=== PATIENT | male | born 1975 | race Caucasian/White ===

== ENCOUNTER 2016-09-28 15:19 | Emergency (ER) | payer OTHER ==
--- NOTE | 2016-09-28 16:25 | ER Document Report ---
ED General - General Stated Complaint: POSSIBLE OVERDOSE Mode of Arrival: Medic Information source: Patient, Emergency Med Personnel, H Records Notes: This is a 41-year-old male who arrives via EMS after an episode of altered mental status. EMS was called for altered mental status and on their arrival the patient was found outside on the ground. EMS reports that his respirations were 0 in his heart rate was 32 and that he was having CPR performed by bystanders. EMS did administer 4 mg of Narcan which resulted in the patient becoming awake and combative. Chart review reveals that he does have a prior history of narcotic abuse. However the patient is denying drug use today. At this time he is confused and does not know what happened today and is only intermittently cooperative with my interview. He does deny fevers chills or recent illness. He also denies chest pain. TRAVEL OUTSIDE OF THE [place] IN LAST 30 DAYS: No - Related Data Allergies/Adverse Reactions: No Known Allergies Allergy (Verified 06/18/16 07:17) Past Medical History - Social History Smoking Status: Unknown if Ever Smoked Family History: Reviewed & Not Pertinent Psychiatric Medical History: Reports: Hx Bipolar Disorder, Other - substance abuse Past Surgical History: Reports: Hx Orthopedic Surgery - Right clubfoot surgery - Immunizations Hx Diphtheria, Pertussis, Tetanus Vaccination: Yes Review of Systems - Review of Systems -: Yes ROS unobtainable due to patient's medical condition Constitutional: denies: Chills, Fever EENT: No symptoms reported Cardiovascular: No symptoms reported. denies: Chest pain, Palpitations Respiratory: No symptoms reported. denies: Cough, Hurts to breathe, Short of breath Gastrointestinal: No symptoms reported. denies: Abdominal pain, Nausea, Vomiting Genitourinary: No symptoms reported Musculoskeletal: No symptoms reported Skin: No symptoms reported Hematologic/Lymphatic: No symptoms reported Neurological/Psychological: See HPI Physical Exam - Vital signs Vitals: Resp Pulse Ox 18 100 09/28/16 15:26 09/28/16 15:26 - Notes Notes: PHYSICAL EXAMINATION: GENERAL: Well-appearing, well-nourished and in no acute distress. Somewhat anxious affect and intermittently cooperative with interview. HEAD: Atraumatic, normocephalic. EYES: Pupils equal round and reactive to light, extraocular movements intact, sclera anicteric, conjunctiva are normal. ENT: nares patent, oropharynx clear without exudates. Moist mucous membranes. NECK: Normal range of motion, supple without lymphadenopathy LUNGS: Breath sounds clear to auscultation bilaterally and equal. No wheezes rales or rhonchi. HEART: Regular rate and rhythm without murmurs ABDOMEN: Soft, nontender, normoactive bowel sounds. No guarding, no rebound. No masses appreciated. EXTREMITIES: Normal range of motion, no pitting or edema. NEUROLOGICAL: Cranial nerves grossly intact. Normal speech. Motor strength +5/ 5 bilateral upper and lower extremities. Sensation intact. No gross focal motor sensory deficits appreciated. PSYCH: Flat affect, tangential speech and occasional bizarre thought process, but adamantly denies SI/HI SKIN: Warm, Dry, normal turgor, no rashes or lesions noted. Course - Re-evaluation Re-evalutation: 09/28/16 18:13 Patient reexamined. His heart rate is 90. He continues to deny SI/HI. He is unable to recall events leading up to episode of unresponsiveness today. He continues to deny substance abuse today. No chest pain. Family is available now (father) who states that he has long history of bipolar and psychiatric problems and that he was recently placed on Depakote. 09/28/16 22:40 Patient has been observed in the ER for several hours. He has remained alert and oriented and hemodynamically stable. He states that he has no complaints at this time. He adamantly denies any thoughts of hurting himself or anyone else. He does have a follow-up mental health appointment next week which he states he is planning to keep. At this time there is no criteria for involuntary commitment. He will be discharged home with his family and will return for any worsening symptoms or concerns. - Vital Signs Vital signs: Temp Pulse Resp BP Pulse Ox 98.1 F 120 H 18 123/90 H 99 09/28/16 23:01 09/28/16 16:00 09/28/16 23:01 09/28/16 23:01 09/28/16 23:01 - Laboratory Result Diagrams: 09/28/16 15:45 09/28/16 15:45 Laboratory results interpreted by me: 09/28/16 09/28/16 15:45 15:50 WBC 11.2 H RDW 14.1 H Absolute Neutrophils 8.4 H Urine Ascorbic Acid 20 H - Diagnostic Test Radiology reviewed: Reports reviewed - Chest x-ray with no acute process - EKG Interpretation by Me Additional EKG results interpreted by me: 09/28/16 18:10 EKG at 1711 demonstration normal sinus rhythm with a rate of 96. There are no ST segment elevations or depressions. QRS and VA and QTC intervals are all within normal limits. Discharge - Discharge Clinical Impression: Substance abuse Bipolar disorder Qualifiers: Active/Remission status: remission status unspecified Qualified Code(s): F31.9 - Bipolar disorder, unspecified Condition: Stable Disposition: HOME, SELF-CARE Additional Instructions: Keep your mental health follow-up appointment as scheduled next week. Take your medications as prescribed. Do not use drugs or any other nonprescribed substances/medications. Return to the emergency department for any chest pain, passing out, fever, or worsening symptoms or concerns.
[2016-09-28 16:31] LABS: ABSOLUTE BASOPHILS # (AUTO) 0.1 10^3/uL (0.0-0.2); ABSOLUTE EOSINOPHILS # (AUTO) 0.1 10^3/uL (0.0-0.6); ABSOLUTE LYMPHOCYTES (AUTO) 1.9 10^3/uL (0.5-4.7); ABSOLUTE MONOCYTES (AUTO) 0.8 10^3/uL (0.1-1.4); ABSOLUTE NEUT (AUTO) 8.4 10^3/uL (1.7-8.2); BASOPHILS % (AUTO) 0.5 % (0-2); EOSINOPHILS % (AUTO) 0.5 % (0-6); HEMATOCRIT 41.8 % (37.9-51.0); HEMOGLOBIN 14.1 g/dL (13.5-17.0); HGB HCT DIFFERENCE 0.5; LYMPHOCYTES % (AUTO) 16.7 % (13-45); MEAN CORPUSCULAR HEMOGLOBIN 30.1 pg (27.0-33.4); MEAN CORPUSCULAR HGB CONC 33.7 g/dL (32.0-36.0); MEAN CORPUSCULAR VOLUME 89 fl (80-97); MONOCYTES % (AUTO) 6.8 % (3-13); RED BLOOD COUNT 4.69 10^6/uL (4.35-5.55); RED CELL DISTRIBUTION WIDTH 14.1 % (11.5-14.0); SEGMENTED NEUTROPHILS % (AUTO) 75.5 % (42-78); WHITE BLOOD COUNT 11.2 10^3/uL (4.0-10.5)
[2016-09-28 16:35] LABS: PROTHROMBIN TIME 12.6 SEC (11.4-15.4)
[2016-09-28 16:36] LABS: ALANINE AMINOTRANSFERASE 43 U/L (21-72); ALBUMIN 4.5 g/dL (3.5-5.0); ALCOHOL 21 mg/dL (NONE DETECTED); ALKALINE PHOSPHATASE 58 U/L (38-126); ANION GAP 16 (5-19); ASPARTATE AMINO TRANSFERASE 39 U/L (17-59); BILIRUBIN,DIRECT 0.3 mg/dL (0.0-0.4); BILIRUBIN,TOTAL 0.5 mg/dL (0.2-1.3); BLOOD UREA NITROGEN 7 mg/dL (7-20); CALCIUM 10.2 mg/dL (8.4-10.2); CARBON DIOXIDE 26 mmol/L (22-30); CHLORIDE 102 mmol/L (98-107); CREATINE KINASE 88 U/L (55-170); CREATININE RESULT 0.75 mg/dL (0.52-1.25); GLUCOSE 88 mg/dL (75-110); PARTIAL THROMBOPLASTIN TIME 29.7 SEC (23.5-35.8); POTASSIUM 3.8 mmol/L (3.6-5.0); SODIUM 144.2 mmol/L (137-145); TOTAL PROTEIN 7.4 g/dL (6.3-8.2)
[2016-09-28 16:47] LABS: CREATINE KINASE MB 1.08 ng/mL (<4.55)
[2016-09-28 16:48] LABS: TROPONIN I < 0.012 ng/mL
[2016-09-28 17:46] LABS: APPEARANCE,URINE CLEAR; BILIRUBIN,URINE NEGATIVE (NEGATIVE); GLUCOSE, URINE NEGATIVE (NEGATIVE); KETONES,URINE NEGATIVE (NEGATIVE); LEUKOCYTE ESTERASE,URINE NEGATIVE (NEGATIVE); NITRITE,URINE NEGATIVE (NEGATIVE); PROTEIN,URINE NEGATIVE (NEGATIVE); URINE SPECIFIC GRAVITY 1.003; UROBILINOGEN,URINE NEGATIVE mg/dL (<2.0)
[2016-09-28 17:59] LABS: URINE BARBITURATES SCREEN NEGATIVE; URINE METHADONE SCREEN NEGATIVE; URINE OPIATES LOW NEGATIVE; URINE PHENCYCLIDINE SCREEN NEGATIVE
[2016-09-28 23:21] VITALS: BP 123/90
--- NOTE | 2016-09-29 00:06 | EKG REPORT ---
SEVERITY:- NORMAL ECG - SINUS RHYTHM : Confirmed by: Tian Allan 29-Sep-2016 00:04:57
== END 2016-09-28 23:25 | disposition home or self-care (01) ==
LOC: ER 15:19
DX: F19.10 Other psychoactive substance abuse, uncomplicated (principal); R41.3 Other amnesia; F31.9 Bipolar disorder, unspecified
CPT/HCPCS: 36415; 71010; 80053; 80164; 80307; 81001; 82550; 82553; 83735; 84484; 85025; 85610; 85730; 93005; 93010; 99285

== ENCOUNTER 2017-02-04 11:04 | Emergency (ER) | payer OTHER ==
[2017-02-04] MEDS ORDERED: NORMAL SALINE 1000 ML 1,000 ML IV ONE (11:26)
[2017-02-04] MEDS ORDERED: MORPHINE SULFATE 10 MG/ML INJ IV ONE ×2 (11:26→12:42)
[2017-02-04] MEDS ORDERED: ONDANSETRON HCL INJ/PF 4 MG/2 ML SDV IV ONE (11:26)
[2017-02-04] MEDS ORDERED: TERBUTALINE SULFATE INJ/PF 1 MG/1 ML SDV SUBCUT ONE (11:27)
--- NOTE | 2017-02-04 11:28 | ER Document Report ---
ED GI/ - General Mode of Arrival: Ambulatory Information source: Patient TRAVEL OUTSIDE OF THE [place] IN LAST 30 DAYS: No - HPI Patient complains to provider of: Other - priapism Associated symptoms: Other - see above - General Chief Complaint: Penile Problem Stated Complaint: PROLONGED ERECTION Time Seen by Provider: 02/04/17 11:14 Notes: Patient is a 41 year old male who presents to the ED with complaints of priapism with onset 0500 this morning. Patient states it woke him up but he was able to go back to sleep for a little while. Patient has had priapism 2x in the past. Patient has a history of bipolar disorder. Patient states he has been off of Trazadone for approximately 4 months ago and states he started a new sleeping medication last . (TEMI BOLES) - Related Data Allergies/Adverse Reactions: No Known Allergies Allergy (Verified 02/04/17 11:09) Past Medical History - General Information source: Patient - Social History Smoking Status: Current Some Day Smoker Chew tobacco use (# tins/day): No Frequency of alcohol use: Occasional Drug Abuse: Marijuana Family History: Reviewed & Not Pertinent Patient has suicidal ideation: No Patient has homicidal ideation: No Renal/ Medical History: Denies: Hx Peritoneal Dialysis Psychiatric Medical History: Reports: Hx Bipolar Disorder Past Surgical History: Reports: Hx Orthopedic Surgery - Right clubfoot surgery - Immunizations Hx Diphtheria, Pertussis, Tetanus Vaccination: Yes Review of Systems - Review of Systems Constitutional: No symptoms reported EENT: No symptoms reported Cardiovascular: No symptoms reported Respiratory: No symptoms reported Gastrointestinal: No symptoms reported Genitourinary: No symptoms reported Male Genitourinary: See HPI, Erectile dysfunction Musculoskeletal: No symptoms reported Skin: No symptoms reported Hematologic/Lymphatic: No symptoms reported Neurological/Psychological: No symptoms reported Physical Exam - General General appearance: Appears well, Alert In distress: None - HEENT Head: Normocephalic, Atraumatic Eyes: Normal Extraocular movements intact: Yes Pupils: PERRL - Respiratory Respiratory status: No respiratory distress Breath sounds: Normal - Cardiovascular Rhythm: Regular Heart sounds: Normal auscultation Murmur: No - Abdominal Inspection: Normal - Genitourinary Inspection: Other - priapism - Back Back: Normal - Extremities General upper extremity: Normal inspection, Normal ROM General lower extremity: Normal inspection, Normal ROM - Neurological Neuro grossly intact: Yes - Psychological Associated symptoms: Normal affect, Other - biplar, hypomanic - Skin Skin Temperature: Warm Skin Moisture: Dry Skin Color: Normal Course - Re-evaluation Re-evalutation: 02/04/17 14:58 PROCEEDURE: The penile shaft was prepped with alcohol wipes Arben-Synephrine in a 1,000 mcg/1 mL sterile water solution was used. 1 mL was injected into both sides of the penile shaft every 5-10 minutes up to a total of 4 injections into each side. Eventually the patient detumesced. This time he is feeling much better and anxious to go home. (JOSE SERRANO) - Vital Signs Vital signs: Temp Pulse Resp BP Pulse Ox 97.9 F 80 28 H 150/91 H 100 02/04/17 11:09 02/04/17 11:09 02/04/17 14:01 02/04/17 14:00 02/04/17 11:09 Discharge - Discharge Clinical Impression: Priapism Condition: Stable Disposition: HOME, SELF-CARE Additional Instructions: Priapism: Priaprism is a uncontrollable painful erection of the penis. Blood is trapped within the veins of the penis, preventing it from deflating. It can occur with blood diseases such as sickle cell disease and leukemia. Sometimes no cause can be found. Permanent problems can develop if priapism is untreated. Priapism can be treated with medication injection, or by withdrawing blood from the penis with a needle. It's important to follow up with the urologist. Call the doctor or return if you develop difficulty urinating, severe pain in the penis or testicles, fever, swelling, or other significant change. Stop taking the new sleeping pill your prescribed. Follow up with a urologist this week for recheck. RETURN TO THE EMERGENCY ROOM IF ANY NEW OR WORSENING SYMPTOMS. Scribe Attestation: 02/04/17 15:00 I personally performed the services described in the documentation, reviewed and edited the documentation which was dictated to the scribe in my presence, and it accurately records my words and actions. (JOSE SERRANO) Scribe Documentation - Scribe Written by Gwen:: gwen Varghese, 02/04/2017, 1128 acting as scribe for :: Nicole
[2017-02-04] MEDS ORDERED: PHENYLEPHRINE HCL INJ/PF 10 MG/1 ML SDV SUBCUT PRN ×2 (11:37→11:50)
[2017-02-04] MEDS ORDERED: PSEUDOEPHEDRINE HCL 30 MG TABLET PO ONE (12:41)
[2017-02-04 15:11] VITALS: BP 144/96
== END 2017-02-04 15:11 | disposition home or self-care (01) ==
LOC: ER 11:04
DX: N48.30 Priapism, unspecified (principal); F17.200 Nicotine dependence, unspecified, uncomplicated
CPT/HCPCS: 96376; 99284; 96372; 96361; 96374; 96375; J2270; J2370; J3105; J2405; J7030

== ENCOUNTER 2017-02-20 06:31 | Emergency (ER) | payer OTHER ==
[2017-02-20] MEDS ORDERED: PHENYLEPHRINE HCL INJ/PF 10 MG/1 ML SDV IM ONE ×2 (07:20→09:15)
[2017-02-20] MEDS ORDERED: OXYCODONE-ACETAMINOPHEN 5-325 MG TABLET PO ONE (07:40)
[2017-02-20] MEDS ORDERED: MORPHINE SULFATE 10 MG/ML INJ IV ONE (08:15)
--- NOTE | 2017-02-20 09:24 | ER Document Report ---
ED GI/ - General Chief Complaint: Penile Pain Stated Complaint: DISCOMFORT IN GROIN AREA Time Seen by Provider: 02/20/17 07:19 Mode of Arrival: Ambulatory Information source: Patient Notes: Pt is a 41 year old male with bipolar disorder who presents to the ER today for priapism since 4am this morning. He has had this multiple times before and it was thought to be from trazodone, but he states he stopped taking that and is taking his olanzepine and benztropine which now he's convinced is causing it. He state he hasn't had sexual intercourse in 15 years. TRAVEL OUTSIDE OF THE [place] IN LAST 30 DAYS: No - Related Data Allergies/Adverse Reactions: No Known Allergies Allergy (Verified 02/20/17 06:49) Past Medical History - General Information source: Patient - Social History Smoking Status: Current Every Day Smoker Chew tobacco use (# tins/day): No Frequency of alcohol use: None Drug Abuse: None Family History: Reviewed & Not Pertinent Patient has suicidal ideation: No Patient has homicidal ideation: No Renal/ Medical History: Denies: Hx Peritoneal Dialysis Psychiatric Medical History: Reports: Hx Bipolar Disorder Past Surgical History: Reports: Hx Orthopedic Surgery - Right clubfoot surgery - Immunizations Hx Diphtheria, Pertussis, Tetanus Vaccination: Yes Review of Systems - Review of Systems Constitutional: No symptoms reported EENT: No symptoms reported Cardiovascular: No symptoms reported Respiratory: No symptoms reported Gastrointestinal: No symptoms reported Genitourinary: No symptoms reported Male Genitourinary: See HPI Musculoskeletal: No symptoms reported Skin: No symptoms reported Hematologic/Lymphatic: No symptoms reported Neurological/Psychological: No symptoms reported Physical Exam - Vital signs Vitals: Temp Pulse Resp BP Pulse Ox 97.6 F 81 24 H 151/109 H 100 02/20/17 06:46 02/20/17 06:46 02/20/17 06:46 02/20/17 06:46 02/20/17 06:46 - Notes Notes: PHYSICAL EXAMINATION: GENERAL: Well-appearing and in no acute distress. HEAD: Atraumatic, normocephalic. EYES: Pupils equal round and reactive to light, extraocular movements intact, sclera anicteric, conjunctiva are normal. NECK: Normal range of motion, supple without lymphadenopathy LUNGS: CTAB and equal. No wheezes rales or rhonchi. HEART: Regular rate and rhythm without murmurs ABDOMEN: Soft, no tenderness. No guarding, no rebound GI/: penis erect, normal coloration EXTREMITIES: Normal range of motion, no pitting edema. No cyanosis. NEUROLOGICAL: Cranial nerves grossly intact. Normal sensory/motor exams. PSYCH: Normal mood, normal affect. SKIN: Warm, Dry, normal turgor, no rashes or lesions noted Course - Vital Signs Vital signs: Temp Pulse Resp BP Pulse Ox 97.5 F 74 18 143/89 H 97 02/20/17 10:16 02/20/17 10:16 02/20/17 10:16 02/20/17 10:16 02/20/17 10:16 Procedures - Additional Procedures priapism procedure Time performed: 09:00 Notes: 02/20/17 12:51 Penis was sterilized with chorprep and alcohol swabs, sterile drapes were used, 1ml of diluted 9:1 sterile water to phenylephrine was injected into the shaft of the penis on each side x 4 total injections, priapism relieved after 20 minutes post first injection. Pt able to urinate before leaving the hospital. Pt feels much better. Critical Care Note - Critical Care Note Total time excluding time spent on procedures (mins): 45 - 45 minutes spent in critical care time with patient, consulted with attending, speaking with family , placing orders and performing procedure. Discharge - Discharge Clinical Impression: Priapism, drug-induced Condition: Stable Disposition: HOME, SELF-CARE Additional Instructions: See your doctor who prescribes her bipolar medication immediately to discuss change of medication before you go off of them. Return immediately for any new or worsening symptoms. Follow up with primary care provider, call tomorrow to make followup appointment.
[2017-02-20] MEDS ORDERED: HYDROCODONE/ACETAMINOPHEN 5-325 MG 6 TAB/DSPK PO PRN (10:09)
[2017-02-20 10:31] VITALS: BP 143/89
[2017-02-20 10:42] LABS: APPEARANCE,URINE CLEAR; BILIRUBIN,URINE NEGATIVE (NEGATIVE); GLUCOSE, URINE NEGATIVE (NEGATIVE); KETONES,URINE NEGATIVE (NEGATIVE); LEUKOCYTE ESTERASE,URINE NEGATIVE (NEGATIVE); NITRITE,URINE NEGATIVE (NEGATIVE); PROTEIN,URINE NEGATIVE (NEGATIVE); URINE SPECIFIC GRAVITY 1.015; UROBILINOGEN,URINE NEGATIVE mg/dL (<2.0)
== END 2017-02-20 10:25 | disposition home or self-care (01) ==
LOC: ER 06:31
DX: N48.30 Priapism, unspecified (principal); N48.89 Other specified disorders of penis; R10.30 Lower abdominal pain, unspecified; F17.200 Nicotine dependence, unspecified, uncomplicated
CPT/HCPCS: 99285; 96374; 81001; J2270; J2370

== ENCOUNTER 2017-09-17 18:31 | Emergency (ER) | payer SELFPAY ==
[2017-09-17 18:48] VITALS: BP 141/99
--- NOTE | 2017-09-17 19:39 | ER Document Report ---
HPI - HPI Pain Level: 3 Notes: Patient is a 42-year-old male with no significant past medical history who presents to the ED complaining of right hand and right wrist pain status post fall earlier today. 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 Patient states that he did not hit his head and he did not have any loss of conscious. Patient states that he is ambulatory without any difficulties. Patient states that he has pain with flexion extension of the wrist. He has not noticed any obvious swelling or bruising. He has no other concerns or complaints at this time. Denies any drug allergies. Patient does admit to smoking but denies IV drug use. Denies any headache, fever, head injury, neck pain, changes in vision/speech/mentation/ hearing, URI, sore throat, chest pain, palpitations, syncope, cough, shortness of breath, wheeze, dyspnea, abdominal pain, nausea/vomiting/diarrhea, urinary retention, dysuria, hematuria, back pain, loss of control of bowel or bladder, numbness/tingling, saddle anesthesia, muscle paralysis/weakness, or rash. - ROS Systems Reviewed and Negative: Yes All other systems reviewed and negative - REPRODUCTIVE Reproductive: DENIES: : - MUSCULOSKELETAL Musculoskeletal: REPORTS: Extremity pain Past Medical History - Social History Smoking Status: Current Every Day Smoker Chew tobacco use (# tins/day): No Frequency of alcohol use: None Family History: Reviewed & Not Pertinent Patient has suicidal ideation: No Patient has homicidal ideation: No Renal/ Medical History: Denies: Hx Peritoneal Dialysis Psychiatric Medical History: Reports: Hx Bipolar Disorder Past Surgical History: Reports: Hx Orthopedic Surgery - Right clubfoot surgery - Immunizations Hx Diphtheria, Pertussis, Tetanus Vaccination: Yes Vertical Provider Document - CONSTITUTIONAL Agree With Documented VS: Yes Notes: PHYSICAL EXAMINATION: GENERAL: Well-appearing, well-nourished and in no acute distress. A&Ox4. Answers questions appropriately. HEAD: Atraumatic, normocephalic. EYES: Pupils equal round and reactive to light, extraocular movements intact, sclera anicteric, conjunctiva are normal. ENT: Nares patent and without discharge. oropharynx clear without exudates. No tonsilar hypertrophy or erythema. Moist mucous membranes. NECK: Normal range of motion, supple without lymphadenopathy LUNGS: Breath sounds clear to auscultation bilaterally and equal. No wheezes rales or rhonchi. HEART: Regular rate and rhythm without murmurs, rubs, gallops. Musculoskeletal: Rt hand/wrist: LROM to passive/active of wrist ext/flexion. FROM to the fingers. Strength 5+/5. N/v intact distal. No scaphoid tenderness. + tenderness to the anteroposterior medial wrist w/o gross deformity, swelling, ecchymosis, swelling, or warmth. No prox forearm tenderness. Ext otherwise b/l: FROM, no deficits with strength 5+/5. N/V intact. No other bony tenderness or deformities. Extremities: No cyanosis, clubbing, or edema b/l. Peripheral pulses 2+. Capillary refill less than 3 seconds. NEUROLOGICAL: MMSE intact. Cranial nerves grossly intact. Normal speech, normal gait. Normal sensory, motor exams PSYCH: Normal mood, normal affect. SKIN: Warm, Dry, normal turgor, no rashes or lesions noted. - INFECTION CONTROL TRAVEL OUTSIDE OF THE [place] IN LAST 30 DAYS: No Course - Re-evaluation Re-evalutation: 09/17/17 19:56 Patient is an afebrile, well-hydrated, 42-year-old male who presents to the ED with right hand/wrist pain, suspect sprain versus strain is contusion based on H &P today. Vitals are acceptable. PE is otherwise unremarkable for any neurovascular compromise, obvious tendon/ligament rupture, obvious fracture/ dislocation, septic joint. X-rays were unremarkable for any acute pathology. Recommend conservative measures for symptoms. Recheck with your PCM in 3-5 days. Consider consult with orthopedic/physical therapy. Return to the ED with any worsening/concerning symptoms otherwise as reviewed discharge. Patient is in agreement. - Vital Signs Vital signs: Temp Pulse Resp BP Pulse Ox 98.4 F 78 18 141/99 H 97 09/17/17 18:47 09/17/17 18:47 09/17/17 18:47 09/17/17 18:47 09/17/17 18:47 Discharge - Discharge Clinical Impression: Right hand pain, Right wrist pain Condition: Stable Disposition: HOME, SELF-CARE Additional Instructions: Rest, Ice, Compression, Elevation Tylenol/ibuprofen as needed Light stretches daily Strength exercises as able Moist heat and massage may help F/u with your PCP in 3-5 days for a recheck Consider consult(s) with Orthopedics/physical therapy for ongoing/worsening symptoms Return to the ED with any worsening symptoms and/or development of fever, headache, chest pain, palpitations, syncope, shortness of breath, trouble breathing, abdominal pain, n/v/d, muscle weakness/paralysis, numbness/tingling, swelling, redness, or other worsening symptoms that are concerning to you. Prescriptions: Naproxen 500 mg PO BID PRN #30 tablet PRN Reason: Forms: Elevated Blood Pressure, Smoking Cessation Education Referrals: [facility] ([place] [Provider Group] - Follow up as needed
--- NOTE | 2017-09-17 19:49 | RADIOLOGY REPORT (SQ) ---
EXAM DESCRIPTION: WRIST RIGHT 3 VIEWS COMPLETED DATE/TIME: 09/17/2017 7:12 pm REASON FOR STUDY: Pain s/p fall/ injury COMPARISON: None. NUMBER OF VIEWS: Three views. TECHNIQUE: AP, lateral, and oblique radiographic images acquired of the right wrist. LIMITATIONS: None. FINDINGS: MINERALIZATION: Normal. BONES: No acute fracture or dislocation. No worrisome bone lesions. Normal alignment. SOFT TISSUES: No soft tissue swelling. No foreign body. OTHER: No other significant finding. IMPRESSION: NEGATIVE STUDY OF THE RIGHT WRIST. NO RADIOGRAPHIC EVIDENCE OF ACUTE INJURY. TECHNICAL DOCUMENTATION: JOB ID: [id number] [employer]- All Rights Reserved Reading location - IP/workstation name: [email or web address]
--- NOTE | 2017-09-17 19:50 | RADIOLOGY REPORT (SQ) ---
EXAM DESCRIPTION: HAND RIGHT 3 VIEWS COMPLETED DATE/TIME: 09/17/2017 7:12 pm REASON FOR STUDY: Pain s/p fall/ injury COMPARISON: None. EXAM PARAMETERS: NUMBER OF VIEWS: Three views. TECHNIQUE: AP, lateral and oblique radiographic images acquired of the right hand. LIMITATIONS: None. FINDINGS: MINERALIZATION: Normal. BONES: No acute fracture or dislocation. No worrisome bone lesions. JOINTS: No effusions. SOFT TISSUES: No soft tissue swelling. No foreign body. OTHER: No other significant finding. IMPRESSION: NEGATIVE STUDY OF THE RIGHT HAND. NO RADIOGRAPHIC EVIDENCE OF ACUTE INJURY. TECHNICAL DOCUMENTATION: JOB ID: [id number] [employer]- All Rights Reserved Reading location - IP/workstation name: [email or web address]
== END 2017-09-17 20:00 | disposition home or self-care (01) ==
LOC: ER 18:31
DX: M79.641 Pain in right hand (principal); M25.531 Pain in right wrist; W19.XXXA Unspecified fall, initial encounter; Y93.89 Activity, other specified; Y99.0 Civilian activity done for income or pay; F17.200 Nicotine dependence, unspecified, uncomplicated
CPT/HCPCS: 99283

== ENCOUNTER 2018-03-12 06:03 | Emergency (ER) | payer SELFPAY ==
[2018-03-12] MEDS ORDERED: TERBUTALINE SULFATE INJ/PF 1 MG/1 ML SDV SUBCUT ONE (06:27)
--- NOTE | 2018-03-12 06:36 | ER Document Report ---
ED GI/ - General Chief Complaint: Penile Problem Stated Complaint: GENITAL PROBLEM Time Seen by Provider: 03/12/18 06:13 Mode of Arrival: Ambulatory Information source: Patient Notes: Patient is a 42-year-old male comes emergency room complaining that he has a priapism. Patient states he has a history of this is the fourth time that he has had one in recent years. He states that he was told by a urologist that he would need to have a surgery performed last time but he decided against it and it did finally become limp after injections. After discussing with the patient his history and causes we have found that he is been told not to take trazodone and felt like he needed to do it last night for sleep and woke up with the priapism after the medication. TRAVEL OUTSIDE OF THE [place] IN LAST 30 DAYS: No - HPI Patient complains to provider of: Other - Penile pain Onset: Other - 4 hours prior to arrival Timing/Duration: Gradual, Worse Quality of pain: Throbbing Severity at maximum: Severe Severity in ED: Moderate Pain Level: 4 Context: Other - Self-medicating for sleeping Location: Other - Penile shaft Sexual history: Active Exacerbated by: Movement Relieved by: Other - Injections Similar symptoms previously: Yes Recently seen / treated by doctor: No - Related Data Allergies/Adverse Reactions: No Known Allergies Allergy (Verified 02/20/17 06:49) Past Medical History - General Information source: Patient - Social History Smoking Status: Current Every Day Smoker Cigarette use (# per day): Yes Chew tobacco use (# tins/day): No Smoking Education Provided: Yes Frequency of alcohol use: Rare Drug Abuse: None Occupation: [employer] Lives with: Family Family History: Reviewed & Not Pertinent Patient has suicidal ideation: No Patient has homicidal ideation: No - Medical History Medical History: Negative - Past Medical History Cardiac Medical History: Reports: None Pulmonary Medical History: Reports: None EENT Medical History: Reports: None Neurological Medical History: Reports: None Endocrine Medical History: Reports: None Renal/ Medical History: Reports: Other - History of priapism some associated with trazodone use others idiopathic. Denies: Hx Peritoneal Dialysis GI Medical History: Reports: None Musculoskeletal Medical History: Reports None Skin Medical History: Reports None Psychiatric Medical History: Reports: None, Hx Bipolar Disorder Traumatic Medical History: Reports: None Infectious Medical History: Reports: None Past Surgical History: Reports: Hx Orthopedic Surgery - Right clubfoot surgery - Immunizations Immunizations up to date: Yes Hx Diphtheria, Pertussis, Tetanus Vaccination: Yes Physical Exam - Vital signs Vitals: Temp Pulse Resp BP Pulse Ox 97.2 F 76 24 H 137/84 H 100 03/12/18 06:11 03/12/18 06:11 03/12/18 06:11 03/12/18 06:11 03/12/18 06:11 Course - Vital Signs Vital signs: Temp Pulse Resp BP Pulse Ox 97.2 F 76 24 H 137/84 H 100 03/12/18 06:11 03/12/18 06:11 03/12/18 06:11 03/12/18 06:11 03/12/18 06:11 Procedures - Additional Procedures Priapism reduction. Dr De León had me order the Phynelepherin and NS. He preformed the intiial procedure by using begtadine to clean the circumferenc Notes: 03/12/18 07:31 Procedure is reduction of priapism. Dr. De León did the initial procedure by cleaning the area around the base of the penis with Betadine. He then used a butterfly needle and injected into the corpora cavernosum. This point he aspirated blood and inserted the phenylephrine he continuously did this until at the point he aspirated approximately 30 cc of the mixture and wasted. He did this approximately 3 times with 20 cc of the mixture of blood and phenylephrine. And was started to get some results. At this point he had me get a second 20 mL syringe with a butterfly and do the right side. I also cleaned the area with Betadine and used a butterfly and went into the corpora cavernosa and withdrew approximately 20 cc and also kept flushing in and out with that mixture. It was about the second 20 cc that I pulled back and wasted patient started to get a reduction in his priapism. Together both of us probably wasted approximately 120 the mixture. We used a total of 100 mL's of the phenylephrine normal saline mix. Patient was finally able to achieve a flaccid penis and he requested us to stop. 2 Band-Aids were applied each side and patient handled this procedure without any complications. There were no hematomas after work. Patient had normal color to his penis. Discharge - Discharge Clinical Impression: Priapism Condition: Stable Disposition: HOME, SELF-CARE Instructions: Priapism ([facility]) Additional Instructions: As we discussed trazodone is not your friend. Highly suggest stop using that. I understand he may have secondary causes the cause the priapism but it does not help to use something that is a known agent that causes it. I am giving you the name of the neurologist that we use at the hospital highly suggest contacting him to see if there is anything else can be performed for other causes. Should you have repeat priapism with the next 24 hours return to ER. Forms: Elevated Blood Pressure, Smoking Cessation Education Referrals: NILDA URIBE II, MD [MARJORIE ALMANZA] - Follow up as needed
[2018-03-12] MEDS ORDERED: PHENYLEPHRINE HCL INJ/PF 10 MG/1 ML SDV ONE (06:50)
[2018-03-12] MEDS ORDERED: PHENYLEPHRINE HCL INJ/PF 10 MG/1 ML SDV IV STA (06:51)
--- NOTE | 2018-03-12 07:38 | ER Document Report ---
Doctor's Note Notes: 03/12/18 07:37 Please see mid-level provider's note for further detail. I did assist in the procedure. A 21-gauge butterfly needle was attached to a 30 cc syringe with a appropriate mixture of phenylephrine and normal saline. Both corpus cavernosum' s were aspirated and injected with phenylephrine solution. Detumescence was obtained. Patient tolerated procedure well. No complications.
[2018-03-12 08:03] VITALS: BP 117/82
== END 2018-03-12 08:03 | disposition home or self-care (01) ==
LOC: ER 06:03
PROC: 3E1N38Z Irrigation of Male Reproductive using Irrigating Substance, Percutaneous Approach (ICD-10-PCS; principal; 2018-03-12)
DX: N48.33 Priapism, drug-induced (principal); T43.215A Adverse effect of selective serotonin and norepinephrine reuptake inhibitors, initial encounter; F17.210 Nicotine dependence, cigarettes, uncomplicated
CPT/HCPCS: 99284; 54220; J2370; J3105

== ENCOUNTER 2019-07-23 18:08 | Emergency (ER) | payer SELFPAY ==
--- NOTE | 2019-07-23 19:01 | ER Document Report ---
ED Medical Screen (RME) - General Chief Complaint: Psych Problem Stated Complaint: PSYCH PROBLEM Time Seen by Provider: 07/23/19 18:40 Mode of Arrival: Ambulatory Information source: Patient Notes: Patient is a 44-year-old male who is allegedly off of his psychiatric medications and been doing meth and possibly heroin. Patient's father brought him to the emergency department for mental health evaluation. He states he sees [facility] Jose for his medications, he has not been compliant with them. Patient denies any suicidal or homicidal ideations. Patient is a flight of ideas, patient continues to fall asleep during the interview. He is redirectable. I have greeted and performed a rapid initial assessment of this patient. A comprehensive ED assessment and evaluation of the patient, analysis of test results and completion of the medical decision making process will be conducted by additional ED providers. I have specifically instructed the patient or family members with the patient to immediately return to any nursing staff should anything change in the patient's condition or with their chief complaint. TRAVEL OUTSIDE OF THE [place] IN LAST 30 DAYS: No - Related Data Allergies/Adverse Reactions: No Known Allergies Allergy (Verified 07/23/19 18:38) Past Medical History - Social History Chew tobacco use (# tins/day): No Frequency of alcohol use: Social Drug Abuse: Heroin, Methamphetamine Renal/ Medical History: Denies: Hx Peritoneal Dialysis Psychiatric Medical History: Reports: Hx Bipolar Disorder Past Surgical History: Reports: Hx Orthopedic Surgery - Right clubfoot surgery - Immunizations Immunizations up to date: Yes Hx Diphtheria, Pertussis, Tetanus Vaccination: Yes Physical Exam - Vital signs Vitals: Temp Pulse Resp BP Pulse Ox 98.3 F 108 H 18 136/92 H 94 07/23/19 18:14 07/23/19 18:14 07/23/19 18:14 07/23/19 18:14 07/23/19 18:14 Course - Vital Signs Vital signs: Temp Pulse Resp BP Pulse Ox 98.3 F 108 H 18 136/92 H 94 07/23/19 18:14 07/23/19 18:14 07/23/19 18:14 07/23/19 18:14 07/23/19 18:14
[2019-07-23 19:35] LABS: ABSOLUTE BASOPHILS # (AUTO) 0.1 10^3/uL (0.0-0.2); ABSOLUTE EOSINOPHILS # (AUTO) 0.1 10^3/uL (0.0-0.6); ABSOLUTE LYMPHOCYTES (AUTO) 1.5 10^3/uL (0.5-4.7); ABSOLUTE MONOCYTES (AUTO) 0.7 10^3/uL (0.1-1.4); ABSOLUTE NEUT (AUTO) 4.4 10^3/uL (1.7-8.2); EOSINOPHILS % (AUTO) 1.2 % (0-6); HEMOGLOBIN 15.3 g/dL (13.5-17.0); LYMPHOCYTES % (AUTO) 22.7 % (13-45); MEAN CORPUSCULAR HEMOGLOBIN 29.9 pg (27.0-33.4); MEAN CORPUSCULAR VOLUME 88 fl (80-97); MONOCYTES % (AUTO) 9.9 % (3-13); PLATELET COUNT 392 10^3/uL (150-450); RED BLOOD COUNT 5.12 10^6/uL (4.35-5.55); RED CELL DISTRIBUTION WIDTH 13.2 % (11.5-14.0); SEGMENTED NEUTROPHILS % (AUTO) 65.2 % (42-78); TOTAL CELLS COUNTED % (AUTO) 100 %; WHITE BLOOD COUNT 6.7 10^3/uL (4.0-10.5)
[2019-07-23 19:51] LABS: ALKALINE PHOSPHATASE 66 U/L (38-126); ANION GAP 12 (5-19); ASPARTATE AMINO TRANSFERASE 30 U/L (17-59); BILIRUBIN,TOTAL 0.3 mg/dL (0.2-1.3); BLOOD UREA NITROGEN 9 mg/dL (7-20); CALCIUM 10.7 mg/dL (8.4-10.2); CARBON DIOXIDE 26 mmol/L (22-30); CHLORIDE 101 mmol/L (98-107); GLUCOSE 89 mg/dL (75-110); POTASSIUM 4.3 mmol/L (3.6-5.0); TOTAL PROTEIN 8.1 g/dL (6.3-8.2)
[2019-07-23 19:53] LABS: ACETAMINOPHEN < 10 ug/mL (10-30); ALCOHOL < 10 mg/dL (NONE DETECTED); SALICYLATE < 1.0 mg/dL (2.0-20.0)
--- NOTE | 2019-07-23 22:14 | ER Document Report ---
ED Psych Disorder / Suicide - General Chief Complaint: Psych Problem Stated Complaint: PSYCH PROBLEM Time Seen by Provider: 07/23/19 18:40 Mode of Arrival: Ambulatory Notes: Patient is a 44-year-old male who comes emergency department for chief complaint of being off his mental health/psychiatric medications and also abusing substances such as meth and heroin. Patient sates his father brought him to the emergency department for mental health evaluation. Reportedly sees Anna Marie Hall for his psychiatric medications but patient states he ran out "a while ago" and has not been taking them. He states he is supposed to be on Subutex, Zyprexa, Lexapro. Patient has been denying SI or HI. Patient states he has not slept in 3 days. Patient states that he has used recreational drugs but he denies using it in the past month. TRAVEL OUTSIDE OF THE [place] IN LAST 30 DAYS: No - Related Data Allergies/Adverse Reactions: No Known Allergies Allergy (Verified 07/23/19 18:38) Past Medical History - General Information source: Patient - Social History Smoking Status: Current Every Day Smoker Chew tobacco use (# tins/day): No Frequency of alcohol use: Social Drug Abuse: Heroin, Methamphetamine Lives with: Family Family History: Reviewed & Not Pertinent Patient has suicidal ideation: No Patient has homicidal ideation: No Renal/ Medical History: Denies: Hx Peritoneal Dialysis Psychiatric Medical History: Reports: Hx Bipolar Disorder Past Surgical History: Reports: Hx Orthopedic Surgery - Right clubfoot surgery - Immunizations Immunizations up to date: Yes Hx Diphtheria, Pertussis, Tetanus Vaccination: Yes Review of Systems - Review of Systems Constitutional: No symptoms reported EENT: No symptoms reported Cardiovascular: No symptoms reported Respiratory: No symptoms reported Gastrointestinal: No symptoms reported Genitourinary: No symptoms reported Male Genitourinary: No symptoms reported Musculoskeletal: No symptoms reported Skin: No symptoms reported Hematologic/Lymphatic: No symptoms reported Neurological/Psychological: No symptoms reported Physical Exam - Vital signs Vitals: Temp Pulse Resp BP Pulse Ox 98.3 F 108 H 18 136/92 H 94 07/23/19 18:14 07/23/19 18:14 07/23/19 18:14 07/23/19 18:14 07/23/19 18:14 - Notes Notes: GENERAL: Sleeping but easily aroused HEAD: Normocephalic, atraumatic. EYES: Pupils equal, round, and reactive to light. Extraocular movements intact. ENT: Oral mucosa moist, tongue midline. Oropharynx unremarkable. Airway patent. LUNGS: Clear to auscultation bilaterally, no wheezes, rales, or rhonchi. No respiratory distress. HEART: Regular rate and rhythm. No murmur ABDOMEN: Soft, non-tender. Non-distended. EXTREMITIES: Moves all 4 extremities spontaneously. No edema, normal radial and dorsalis pedis pulses bilaterally. No cyanosis. BACK: no cervical, thoracic, lumbar midline tenderness. No saddle anesthesia, normal distal neurovascular exam. NEUROLOGICAL: Alert and oriented x3. Normal speech. Cranial nerves II through XII grossly intact. PSYCH: Erratic statements and behaviors. Nonsensical and tangential statements. However he is cooperative with instructions SKIN: Warm, dry, normal turgor. No rashes or lesions noted. Course - Re-evaluation Re-evalutation: Patient was sleeping soundly but then startled awake when I showed him. Patient became anxious but then calmed down. Patient is aware of his location, he is cooperative. It is difficult to get a clear history out of patient. Patient will respond initially with what seems to be an appropriate answer and then has very tangential nonsensical speech. 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 Patient also added that "my dad is going to flip his shit because I let the dog in the house, he loves that dog". Patient appears to be acutely psychotic. However he is also very tired, he is easy to arouse and has no signs of apnea but if he is not engaged he falls asleep and sleeps soundly. He states he has not slept in 3 days. As result his medications will be delayed until the morning. Because he is acutely psychotic I discussed with Dr. Wilson and decision was made to place him on IVC papers because he is a danger to himself not taking his medications and in his current nonsensical psychotic state. Vital signs unremarkable, chemistry, CBC, urinalysis, urine drug screen, EKG unremarkable. Patient is medically cleared pending mental health team evaluation in the morning. - Vital Signs Vital signs: Temp Pulse Resp BP Pulse Ox 98.3 F 108 H 18 136/92 H 94 07/23/19 18:14 07/23/19 18:14 07/23/19 18:14 07/23/19 18:14 07/23/19 18:14 - Laboratory Result Diagrams: 07/23/19 19:00 07/23/19 19:00 Laboratory results interpreted by me: 07/23/19 19:00 Calcium 10.7 H Salicylates < 1.0 L Acetaminophen < 10 L - EKG Interpretation by Me Additional EKG results interpreted by me: 07/23/19 22:14 EKG shows sinus rhythm at a rate of 84, borderline left axis deviation, QTC of 431, no T wave inversions or ST segment changes in consecutive leads. Discharge - Discharge Clinical Impression: Bizarre behavior, Bipolar 1 disorder, Psychotic episode Condition: Stable Disposition: PSYCH HOSP/UNIT
[2019-07-23 23:24] LABS: APPEARANCE,URINE CLEAR; BILIRUBIN,URINE NEGATIVE (NEGATIVE); COLOR,URINE COLORLESS; GLUCOSE, URINE NEGATIVE (NEGATIVE); KETONES,URINE NEGATIVE (NEGATIVE); LEUKOCYTE ESTERASE,URINE NEGATIVE (NEGATIVE); NITRITE,URINE NEGATIVE (NEGATIVE); PROTEIN,URINE NEGATIVE (NEGATIVE); UROBILINOGEN,URINE NEGATIVE mg/dL (<2.0)
[2019-07-23 23:41] LABS: URINE AMPHETAMINES SCREEN NEGATIVE; URINE BARBITURATES SCREEN NEGATIVE; URINE BENZODIAZEPINES SCREEN NEGATIVE; URINE COCAINE SCREEN NEGATIVE; URINE MARIJUANA (THC) SCREEN NEGATIVE; URINE METHADONE SCREEN NEGATIVE; URINE PHENCYCLIDINE SCREEN NEGATIVE
--- NOTE | 2019-07-24 10:26 | EKG REPORT ---
SEVERITY:- OTHERWISE NORMAL ECG - SINUS RHYTHM BORDERLINE LEFT AXIS DEVIATION : Confirmed by: Isaiah Lemon MD 24-Jul-2019 10:25:27
--- NOTE | 2019-07-24 14:35 | PSYCHOLOGICAL NOTE ---
Psych Note - Psych Note Date seen by psych provider: 07/24/19 Time seen by psych provider: 07:55 Psych Note: Reason For Consult:Psychosis Consent Permissions: FatherDavid [phone] [facility] with concerns of psychosis. The evening session placed the patient on 24-hour petition for evaluation dated 07/24/2019. Petition discloses concern the patient is not taking his home medications and was presenting acutely psychotic "speaking nonsensically, disoriented to events and cannot stay focused." Patient reports that he drank too much ZzzQuil last night and attempt to get sleep. He states he had not been able to sleep in the last few days because he ran out of his sleep medication. He reports he attempted to go to [facility] yesterday however they were already closed. Patient confirms he does take Subutex and took half last night with his ZzzQuil. Patient reports he is supposed to take Zyprexa however has not taken in a while. When asked about the amount of ZzzQuil he took last night he reports he has no idea since he just drink straight from the bottle. The behavioral health team contacted patient's father and pharmacy; see mental health note. Patient is alert and orientated to person, place, time and circumstance. Mood is euthymic with congruent affect. Patient denies suicidal and homicidal ideation. Delusions are absent and behaviors congruent with an intact reality based presentation ie organized and linear thought process. Eye contact is well-maintained. Conversational speech is within normal rate, tone and prosody. Intellectual abilities appear to be within the average range. Attention and concentration are good. Insight, judgment, impulse control are fair. Impression\\plan: Patient is recommended for rescind of 24-hour petition for evaluation and is cleared from acute psychiatric services. Patient is no longer demonstrating behaviours of responding to internal stimuli. He is able to engage in organized and linear conversation, maintains good eye contact and has normal conversational speech tone and prosody. He admits substance misuse which includes past night taking his Subutex and drinking ZzzQuil. He reports this was an attempt to sleep not to harm himself. His last use of methamphetamines was approximately Friday. Patient has a current outpatient substance abuse provider in [place] and was previously engaged with [facility] for his mental health. Psychoeducation was provided to the patient on the importance of taking his medications as directed (to include [id number] medications) and to abstain from illegal substance use. Patient is recommended to engage in outpatient mental health services to restart his medications. Patient has been off psychiatric medications since approximately December 2018. Dr. Callejas was consulted to care management of this patient; attending physicians in agreement with recommendations and disposition.
--- NOTE | 2019-07-24 15:19 | ER Document Report ---
Doctor's Note Notes: 07/24/19 15:19 S: Patient was brought in last night by his father for concerns for possible overdose and suicidal ideation and bizarre behavior. Apparently the patient took too much ZzzQuil to help him sleep last night. Patient has done well in the emergency department overnight and has been evaluated by the [facility] team. The patient denies that he has any SI, HI, hallucinations currently. He states he feels well. He states that he was not trying to hurt himself. O: Constitutional: Alert, oriented, no acute distress interactive and friendly Cardiac: Regular rate and rhythm, no murmurs, rubs, gallops Lungs: Clear to auscultation bilaterally, no wheezes, rhonchi, rales Abdomen: Soft, nontender nondistended Psych: Interactive, insightful. Denies SI, HI, hallucinations A/P: Patient was evaluated by the behavioral health team. They have rescinded the IVC orders. Patient denies any SI, HI, hallucinations. He has good outpatient follow-up. We will discharge home. Patient agrees with this plan.
[2019-07-24 15:52] VITALS: BP 132/86
== END 2019-07-24 15:52 | disposition home or self-care (01) ==
LOC: ER 18:08
DX: F91.9 Conduct disorder, unspecified (principal); F31.9 Bipolar disorder, unspecified; F23 Brief psychotic disorder; F19.10 Other psychoactive substance abuse, uncomplicated; F11.10 Opioid abuse, uncomplicated; Z91.14 Patient's other noncompliance with medication regimen
CPT/HCPCS: 36415; 80053; 80307; 81001; 85025; 93005; 93010; 99285